=== PATIENT | male | born 1960 | race Caucasian/White ===

== ENCOUNTER 2017-08-08 22:15 | Emergency (ER) | payer OTHER ==
--- NOTE | 2017-08-09 00:06 | ER Document Report ---
HPI - HPI Patient complains to provider of: Facial injury Pain Level: 4 Context: Patient is a 56-year-old male comes emergency department for chief complaint of injury to the face, he was elbowed in the face by his friend accidentally while playing basketball. He states his nose is crooked, he bled heavily from his nose for about 15 minutes, bleeding has subsided after packing and holding pressure. He is on aspirin, he does not take any other daily medications. He denies getting knocked out, vomiting, neck pain, focal numbness or weakness, visual changes. - DERM Skin Color: [place] Past Medical History - General Information source: Patient - Social History Smoking Status: Never Smoker Drug Abuse: None Lives with: Family Family History: CAD Patient has suicidal ideation: No Patient has homicidal ideation: No - Past Medical History Cardiac Medical History: Reports: Hx Heart Attack, Hx Hypertension Renal/ Medical History: Denies: Hx Peritoneal Dialysis - Immunizations Hx Diphtheria, Pertussis, Tetanus Vaccination: Yes Vertical Provider Document - CONSTITUTIONAL General Appearance: WD/WN, No Apparent Distress - INFECTION CONTROL TRAVEL OUTSIDE OF THE [place] IN LAST 30 DAYS: No - HEENT HEENT: Normocephalic. negative: Normal ENT Exam - Patient has mild deformity of the nose, dried epistaxis in both nasal passages, no septal hematoma, no current bleeding, patient has tenderness over the nose but remaining face is unremarkable. Normal oral exam., Tympanic Membrane Red, Tympanic Membrane Bulging - NECK Neck: Normal Inspection - RESPIRATORY Respiratory: Breath Sounds Normal, No Respiratory Distress O2 Sat by Pulse Oximetry: 99 - CARDIOVASCULAR Cardiovascular: Regular Rate, Regular Rhythm - GI/ABDOMEN Gastrointestinal: Abdomen Soft, Abdomen Non-Tender - BACK Back: Normal Inspection. negative: Abnormal Inspection - MUSCULOSKELETAL/EXTREMETIES Musculoskeletal/Extremeties: MAEW, FROM, Non-Tender - DERM Integumentary: Warm, Dry, No Rash Course - Re-evaluation Re-evalutation: Mild deformity of the nose, imaging showing nasal bone fracture, no septal hematoma, no current epistaxis. Patient declines readjusting the nose after discussion. Patient will be referred to ear nose and throat for cosmetics and reevaluation, discussed nasal bone fracture, follow-up, precautions, return precautions. Patient states satisfaction and agreement. - Vital Signs Vital signs: Temp Pulse Resp BP Pulse Ox 97.4 F 91 18 130/91 H 99 08/08/17 22:24 08/08/17 22:24 08/08/17 22:24 08/08/17 22:24 08/08/17 22:24 Discharge - Discharge Clinical Impression: Facial injury Qualifiers: Encounter type: initial encounter Qualified Code(s): S09.93XA - Unspecified injury of face, initial encounter Nasal bone fracture Qualifiers: Encounter type: initial encounter Fracture type: closed Qualified Code(s): S02.2XXA - Fracture of nasal bones, initial encounter for closed fracture Condition: Stable Disposition: HOME, SELF-CARE Additional Instructions: You have a fractured nose. The physician must recheck the nose once the swelling has decreased (call ENT office below or ENT of your choice for followup ). The final decision about straightening of the bones or surgery can be made once the swelling resolves. This usually takes three to five days. Rest in a reclining chair. Cold pack the nose for the next 24 to 36 hours. Do not blow the nose. This may increase the swelling or cause further bleeding. If you have painful swelling inside the nose or exquisite tenderness when the tip of the nose is touched, you should call the doctor at once or return for re- evaluation. You should also contact the doctor if you develop fever, purulent nasal drainage, increasing pain in the face, or problems with vision. [facility] [address] [place] [id number]
--- NOTE | 2017-08-09 01:10 | RADIOLOGY REPORT (SQ) ---
EXAM DESCRIPTION: CT FACIAL AREA WITHOUT CLINICAL HISTORY: 56 years Male, facial injury, facial pain COMPARISON: None. TECHNIQUE: No contrast, coronal and sagittal reformat. This exam was performed according to our departmental dose-optimization program, which includes automated exposure control, adjustment of the mA and/or kV according to patient size and/or use of iterative reconstruction technique. FINDINGS: 0.5 x 0.3 cm impaction deformity at the tip of the nasal bone of unknown chronicity. 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 Moderate dextroconvexity of the posterior nasal septum. Remaining facial bones, inferior cranium, and visualized nuchal structures appear grossly intact. IMPRESSION: 0.5 x 0.3 cm impaction deformity at the tip of the nasal bone of unknown chronicity.
[2017-08-09 01:58] VITALS: BP 119/78
== END 2017-08-09 01:56 | disposition home or self-care (01) ==
LOC: ER 22:15
DX: S02.2XXA Fracture of nasal bones, initial encounter for closed fracture (principal); W50.0XXA Accidental hit or strike by another person, initial encounter; Y93.67 Activity, basketball; Y92.830 Public park as the place of occurrence of the external cause; I10 Essential (primary) hypertension; I25.2 Old myocardial infarction; Z79.82 Long term (current) use of aspirin
CPT/HCPCS: 70486; 99283